=== PATIENT | female | born 1970 | race Two or more races ===

== ENCOUNTER 2023-12-07 09:45 | Emergency (ER) | payer OTHER ==
[~2023-12-07] VITALS: Ht 152.4 cm; Wt 57.6 kg
[2023-12-07 09:53] VITALS: BP 117/75; TEMP 97.8
[2023-12-07] MEDS ORDERED: IBUP-1955 PO (11:11)
[2023-12-07] MEDS ORDERED: LIDO30AD10 TP (11:11)
[2023-12-07] MEDS ORDERED: CYCL5TAB PO (11:11)
[2023-12-07] MEDS ORDERED: KETOROLAC TROMETHAMINE 15 MG/ML VIAL ONE (11:17)
[2023-12-07] MEDS: KETOROLAC TROMETHAMINE 15 MG/ML VIAL IM ONE (11:21)
[2023-12-07 11:25] VITALS: O2SAT 100
== END 2023-12-07 11:30 | disposition home or self-care (01) ==
LOC: ER 09:49
DX: G89.29 Other chronic pain (principal); M54.42 Lumbago with sciatica, left side; Z60.2 Problems related to living alone
CPT/HCPCS: 99283; 96372; 73552; J1885